=== PATIENT | male | born 1955 | race Caucasian/White ===

== ENCOUNTER 2018-06-14 10:37 | Outpatient (REF) | payer OTHER, SELFPAY ==
[2018-06-14 22:02] LABS: ALT 25 U/L (12-78); AST 22 U/L (15-37); Albumin 4.1 g/dL (3.4-5.0); Alkaline Phosphatase 92 U/L (46-116); Anion Gap 9.3 mmol/L (3-11); BUN 22 mg/dL (7-18); Bilirubin, Total 0.9 mg/dL (0.2-1.0); CO2 28.7 mmol/L (21.0-32.0); CREATININE 1.14 mg/dL (0.70-1.30); Calcium 9.4 mg/dL (8.5-10.1); Chloride 105 mmol/L (98-107); Glucose 87 mg/dL (70-100); Potassium 3.8 mmol/L (3.5-5.1); Sodium 143 mmol/L (136-145); TSH (W/Ref FT4) 3.11 uIU/mL (0.358-3.74); Total Protein 6.8 g/dL (6.4-8.2)
== END 2018-06-14 10:57 ==
LOC: NCHCN 10:37
PROVIDERS: Visit Provider Nurse Practitioner Family
DX: E03.9 Hypothyroidism, unspecified (principal); I25.10 Atherosclerotic heart disease of native coronary artery without angina pectoris; D21.9 Benign neoplasm of connective and other soft tissue, unspecified; E66.9 Obesity, unspecified
CPT/HCPCS: 80053; 84443

== ENCOUNTER 2018-06-24 00:38 | Outpatient (CLI) | payer OTHER, SELFPAY ==
--- NOTE | 2018-06-24 08:14 | DI.US_ITS ---
SYMPTOMS/DIAGNOSIS: CARDIOVASCULAR SCREENING, Z13.6 ABDOMINAL AORTA ULTRASOUND: Sonographic evaluation of the abdominal aorta was performed. There is no evidence of an abdominal aortic aneurysm. Largest diameter is seen proximally where it measures 1.6 x 1.8 cm. The right iliac artery measures 0.8 x 1.0 cm. The left iliac artery measures 0.8 x 1.0 cm. IMPRESSION: No sonographic evidence of an abdominal aortic aneurysm.
== END 2018-06-24 00:58 ==
PROVIDERS: PCP Nurse Practitioner Family; Visit Provider Internal Medicine
DX: Z13.6 Encounter for screening for cardiovascular disorders (principal)
CPT/HCPCS: 76706

== ENCOUNTER 2019-12-01 09:25 | Outpatient (CLI) | payer OTHER, SELFPAY ==
[2019-12-03 05:50] LABS: SARS-CoV-2 RNA Undetected (Undetected); SARS-CoV-2 Specimen Source Nasopharynx
== END 2019-12-01 09:45 ==
PROVIDERS: PCP Nurse Practitioner Family; Visit Provider Nurse Practitioner Family
DX: Z20.828 Contact with and (suspected) exposure to other viral communicable diseases (principal)
CPT/HCPCS: U0003

== ENCOUNTER 2021-04-07 11:47 | Outpatient (REF) | payer MEDICARE, SELFPAY ==
[2021-04-07 15:14] LABS: ALT 30 U/L (16-63); AST 18 U/L (15-37); Albumin 4.4 g/dL (3.4-5.0); Alkaline Phosphatase 90 U/L (46-116); Anion Gap 8.3 mmol/L (3-11); BUN 20 mg/dL (7-18); Bilirubin, Total 0.9 mg/dL (0.2-1.0); CO2 27.7 mmol/L (21.0-32.0); CREATININE 1.2 mg/dL (0.70-1.30); Calcium 9.2 mg/dL (8.5-10.1); Chloride 105 mmol/L (98-107); Glucose 105 mg/dL (74-106); Magnesium 2.2 mg/dL (1.8-2.4); Potassium 4.5 mmol/L (3.5-5.1); Sodium 141 mmol/L (136-145); TSH (W/Ref FT4) 2.48 uIU/mL (0.36-3.74); Total Protein 7.4 g/dL (6.4-8.2); Vitamin B12 500 pg/mL (193-986)
== END 2021-04-07 11:48 | disposition home or self-care (01) ==
LOC: NCHCN 11:47
PROVIDERS: PCP Nurse Practitioner Family; Visit Provider Nurse Practitioner Family
DX: K21.9 Gastro-esophageal reflux disease without esophagitis (principal); E66.9 Obesity, unspecified; E03.9 Hypothyroidism, unspecified; I25.10 Atherosclerotic heart disease of native coronary artery without angina pectoris
CPT/HCPCS: 80053; 82607; 83735; 84443

== ENCOUNTER 2022-08-18 11:20 | Outpatient (REF) | payer MEDICARE, SELFPAY ==
[2022-08-18 14:36] LABS: Anion Gap 11.2 mmol/L (3-11); BUN 25 mg/dL (7-18); CO2 27.8 mmol/L (21.0-32.0); CREATININE 1.2 mg/dL (0.70-1.30); Calcium 9.3 mg/dL (8.5-10.1); Chloride 104 mmol/L (98-107); Estimated GFR 65.46 (mL/min/1.73m2); Glucose 106 mg/dL (74-106); Potassium 4.3 mmol/L (3.5-5.1); Sodium 143 mmol/L (136-145); TSH (W/Ref FT4) 2.19 uIU/mL (0.36-3.74); Vitamin B12 424 pg/mL (193-986)
== END 2022-08-18 11:21 | disposition home or self-care (01) ==
LOC: NCHCN 11:20
PROVIDERS: PCP Nurse Practitioner Family; Visit Provider Nurse Practitioner Family
DX: I10 Essential (primary) hypertension (principal); E03.9 Hypothyroidism, unspecified; I25.10 Atherosclerotic heart disease of native coronary artery without angina pectoris; K21.9 Gastro-esophageal reflux disease without esophagitis; E66.9 Obesity, unspecified; M25.561 Pain in right knee; Z86.39 Personal history of other endocrine, nutritional and metabolic disease
CPT/HCPCS: 80048; 82607; 83735; 84443

== ENCOUNTER 2023-07-24 06:23 | Inpatient (IN) | payer MEDICARE, SELFPAY ==
[2023-07-24] VITALS (35 sets, daily range): BP systolic 115–171; BP diastolic 57–83; PULSE 53–72; RESP 12–19; TEMP 35.3–37; O2SAT 95–100
--- NOTE | 2023-07-24 06:15 | RT.EKG_ITS ---
APPROVED REPORT Exam: Resting ECG Reason for Exam: chest pain Patient Location: E HR:59 bpm ECG Measurements Heart Rate 59 AXIS NH 204 P 62 QRSd 162 QRS -50 QT 460 T 1 QTc 456 Conclusion Sinus bradycardia...rate< 60 RBBB and LAFB...QRSd >120mS, axis(-40,240) no st segment or t wave abnormalities to suggest occlusive mi
--- NOTE | 2023-07-24 06:30 | DI.RAD_ITS ---
Exam(s) XR PORTABLE CHEST AP EXAM: XR PORTABLE CHEST AP CLINICAL HISTORY: chest pain TECHNIQUE: 2D digital imaging was performed. COMPARISON: CR,RF BARIUM SWALLOW W PA LAT CXR from 12/22/2008 FINDINGS: Leads overlie the chest. LUNGS: Clear. No pleural abnormality seen. HEART: Normal size. AORTA: Normal diameter. BONES: Degenerative changes in the thoracic spine. Soft tissues: Unremarkable. IMPRESSION: No acute findings. DATA REPOSITORY: RADIATION DOSE DELIVERED:
--- NOTE | 2023-07-24 06:30 | DI.CT_ITS ---
Exam(s) CT THORAX CTA EXAM: CT THORAX CTA CLINICAL HISTORY: chest pain radiating into back/left arm. TECHNIQUE: Imaging Protocol: Axial CT angiography was performed with multi-slice acquisition and mu lti-planar reconstructions as well as axial, coronal and sagittal MIP reconstructions. CONTRAST MATERIAL: Intravenous: Omnipaque 350 Contrast volume:100 ml COMPARISON: CR XR PORTABLE CHEST AP from 07/24/2023 FINDINGS: Pulmonary Arteries: No evidence of filling defect to suggest pulmonary emboli. Tracheobronchial tree: No mucous plugging. Mediastinum and Pau: No dominant adenopathy or fluid collection. Small hiatal hernia. Pulmonary parenchyma: No consolidation or dominant measurable mass. Pleura: No effusion or pneumothorax. Heart: The heart is mildly dilated. Minimal coronary artery calcifications are seen. Aorta: Thoracic aorta non-dilated. No dissection. Minimal atherosclerotic changes. Upper abdomen: No acute findings. Bones: Endplate osteophytes in the thoracic spine. No compression fractures. Tubes, Catheters, and Lines: None Soft tissues: Unremarkable. IMPRESSION: No evidence of pulmonary embolism or aortic dissection. Small hiatal hernia. RADIATION DOSE DELIVERED: 336.45mGy.cm Total DLP DATA REPOSITORY: All CT scans at this facility are submitted to the National Radiology Data Registry (NRDR) Dose Index Registry (DIR) with the [employer] (A[employer]). RADIATION OPTIMIZATION: All CT scans at this facility use at least one of these dose optimization te chniques: automated exposure control; mA and/or kV adjustment per patient size (includes targeted exa ms where dose is matched to clinical indication); or iterative reconstruction.
--- NOTE | 2023-07-24 06:43 | ED.GENADUL_ITS ---
Discharge Plan Discharge Details Chief Complaint: Chest Pain Primary Care Provider: Zandra Hatch ED Provider: Katharine Huber Home Meds and New Rx's Prescriptions: No Action ASPIRIN, CHEWABLE 81 MG TAB.CHEW 81 mg CH DAILY PRILOSEC OTC 20 MG TABLET.DR 20 mg PO DAILY Qty: 90 Patient Comments: 05/02/16trying to stop completely simvastatin 10 MG tablet 10 mg PO DAILY HPI General Mode of arrival: ambulatory . Date/Time Provider Initiated Documentation: 07/24/23 06:33 . Limitations to Documentation: no limitations . Information obtained by: patient and family . HPI Narrative: 68yo M denies prior medical history presents with acute chest pain radiating to left arm and back. Started around 0500 this morning while doing barn chores. L eft arm felt weird and heavy. Associated diaphoresis, lightheadedness, and shortness of breath. Lasted from 0500 to around 0630. Did not take any medications. Pain has since resolved. No recent trauma or injury. Never experienced similar symptoms in the past. Otherwise in his usual state of health with no fevers, chills, rash, vomiting, abdominal pain, tingling, weakness, or other concerns. Related Data Home Medications Medication Instructions Recorded Confirmed Prilosec Otc 20 mg PO DAILY ##90 09/11/08 07/24/23 Aspirin, Chewable 81 mg CH DAILY 12/10/09 07/24/23 simvastatin 10 mg tablet 10 mg PO DAILY 04/04/16 07/24/23 Allergies Allergy/AdvReac Type Severity Reaction Status Date / Time No Known Drug Allergies Allergy none Verified 07/24/23 06:38 General Stated Complaint: Chest Pain NILDA: 3 Review of Systems Narrative: see HPI Exam Narrative Exam Narrative: General: Alert, well appearing, well nourished, in no acute distress. Head: Normocephalic, atraumatic Neck: Trachea midline, ?Neck supple. ENT: ?MMM.? No oropharygeal lesions or exudate. Cardiac: ?RRR, no murmurs appreciated Resp: No respiratory distress. CTAB. Abd: ?Soft, non-distended, nontender : ?No suprapubic tenderness. Extremities: ?No deformities.? No peripheral edema. Neurologic: GCS 15. ? Moves all extremities freely against gravity Course Vital Signs Vital signs: Vital Signs Temperature 36.6 C 07/24/23 06:27 Pulse 68 07/24/23 06:27 Respiratory Rate 16 07/24/23 06:27 Blood Pressure 171/73 H 07/24/23 06:27 Pulse Oximetry 100 07/24/23 06:27 Temperature 36.6 C 07/24/23 06:27 Temperature Source Temporal Artery Scan 07/24/23 06:27 Pulse 68 07/24/23 06:27 Respiratory Rate 16 07/24/23 06:27 Respiratory Effort Normal, Non-Labored 07/24/23 06:35 Respiratory Depth Normal 07/24/23 06:35 Respiratory Pattern Normal 07/24/23 06:35 Blood Pressure 171/73 H 07/24/23 06:27 Pulse Oximetry 100 07/24/23 06:27 Oxygen Delivery Method Room Air 07/24/23 06:27 Oxygen Flow Rate 0 07/24/23 06:27 Pain Level 0 07/24/23 06:27 Medical Decision Making 68yo M denies prior medical history presents with acute chest pain radiating to left arm and back. Left arm felt weird and heavy. Lasted from 0500 to around 0630. Did not take any medications. Associated diaphoresis, lightheadedness, and shortness of breath. Hypertensive on arrival, vital signs otherwise reassuring. Benign physical exam. Pain resolved prior to arrival. History concerning for ACS, less likely dissection, intrabdominal pathology including reflux, pancreatitis possible though no epigastric tenderness on exam. Given 325 of ASA here. EKG SR, no ST segment or T wave abnormalities to suggest occlusive FL. Will initiate broad workup including labs, CXR, CT for dissection. Signed out to oncoming physician, labs and imaging pending. Quality:[facility] Health Related Social Needs: No Data to Display [facility] Medical History GERD (gastroesophageal reflux disease) Surgical History (Updated 05/04/16 @ 10:16 by Fina Portillo) Colonoscopy - MAC (05/02/16) Social History Smoking/Tobacco Use Status: Former Tobacco Use Smoking risk assessment performed?: Yes Drug use: Never Substance use type: does not use Housing: house Do you feel safe at home: Yes Do you feel safe in your relationship?: Yes
[2023-07-24] MEDS: Aspirin 81 MG CHEW 324 MG CH (06:47)
[2023-07-24 06:57] LABS: Abs Immature Grans 0.01 10^3/uL (0.0-0.06); Absolute Basophil Count 0.03 10^3/uL (0.0-0.2); Absolute Eosinophil Count 0.11 10^3/uL (0.0-0.7); Absolute Lymphocyte Count 1.81 10^3/uL (1.2-3.4); Absolute Monocyte Count 0.38 10^3/uL (0.1-0.8); Absolute Neutrophil Count 3.75 10^3/uL (1.2-6.7); Basophils % 0.5; Eosinophils % 1.8; HCT 45.5 % (40.0-50.0); HGB 15.8 g/dL (13.5-17.5); Immature Grans % 0.2; Lymphocytes % 29.7; MCH 30.9 pg (27.0-33.0); MCHC 34.7 % (32.0-36.0); MCV 89 fL (80-95); MPV 10.3 fL (8.0-11.0); Monocytes % 6.2; Neutrophils % 61.6; Platelet Count 238 10^3/uL (130-400); RBC 5.12 10^6/uL (4.36-5.78); RDW 11.9 % (11.8-14.1); RDW-SD 38.8 fL; WBC 6.09 10^3/uL (4.4-10.8)
[2023-07-24 07:18] LABS: INR 1.1 (0.9-1.1)
[2023-07-24 07:27] LABS: ALT 28 U/L (16-63); AST 20 U/L (15-37); Albumin 4.5 g/dL (3.4-5.0); Alkaline Phosphatase 84 U/L (46-116); Anion Gap 11.9 mmol/L (3-11); BUN 21 mg/dL (7-18); Bilirubin, Total 1.2 mg/dL (0.2-1.0); CO2 25.1 mmol/L (21.0-32.0); CREATININE 1.3 mg/dL (0.70-1.30); Calcium 9.2 mg/dL (8.5-10.1); Chloride 106 mmol/L (98-107); Glucose 177 mg/dL (74-106); Lipase 48 U/L (16-77); NT-proBNP 76 pg/mL (<300); Potassium 3.8 mmol/L (3.5-5.1); Sodium 143 mmol/L (136-145); Total Protein 7.8 g/dL (6.4-8.2); Troponin I < 50 ng/L (< or =60)
[2023-07-24] MEDS: Normal Saline - Diluent 50 ML VIAL IJ (07:31)
--- NOTE | 2023-07-24 07:31 | W.EDPROG ---
Date of service: 07/24/23 Time of Service: 07:32 Medical Decision Making care assumed from off going provider patient with acute exertional chest pain. initial trop negative. plan for admission pending CTA to [facility] for dissection. CTA negative. Admitted to hospital for further cardiac work up. No additional CP in ED. Medical Records Medical records reviewed: Yes I reviewed the patient's medical records. Quality:[facility] Health Related Social Needs: No Data to Display Sign Out Sign Out Data: Sign Out Comment: 68yo previously healthy male, acute chest pain radiating to back/left arm from [id number] this morning, since resolved. Given ASA on arrival. EKG no NIELS. Pending labs, CXR, CTA for dissection. Last updated by Katharine Huber MD at 07/24/23 07:08 Discharge Plan Disposition Patient Disposition: Admit to [facility] Condition: Stable Discharge Details Chief Complaint: Chest Pain Clinical Impression: Chest pain Primary Care Provider: Zandra Hatch ED Provider: Panchito Garcia Home Meds and New Rx's Prescriptions: No Action ASPIRIN, CHEWABLE 81 MG TAB.CHEW 81 mg CH DAILY PRILOSEC OTC 20 MG TABLET.DR 20 mg PO DAILY Qty: 90 Patient Comments: 05/02/16trying to stop completely simvastatin 10 MG tablet 10 mg PO DAILY
[2023-07-24] MEDS: Omnipaque 350 MG/ML 500 ML BTL-Imaging package IJ (07:32)
--- NOTE | 2023-07-24 09:06 | DI.VRAD_ITS ---
PROCEDURE INFORMATION: Exam: XR Chest Exam date and time: 07/24/2023 6:45 AM Age: 68 years old Clinical indication: Other: Chest pain TECHNIQUE: Imaging protocol: Radiologic exam of the chest. Views: 1 view. COMPARISON: No relevant prior studies available. FINDINGS: Lungs: No focal consolidation seen. Pleural spaces: No large pleural effusion seen. Heart/Mediastinum: Cardiac silhouette magnified by AP technique. Bones/joints: Grossly unremarkable. IMPRESSION: No acute findings to explain reported symptoms. Dictated and Authenticated by: Janelle Obando MD. Ordering:REG Alcantar MD
--- NOTE | 2023-07-24 09:20 | DI.VRAD_ITS ---
PROCEDURE INFORMATION: Exam: CTA Chest With Contrast Exam date and time: 07/24/2023 7:08 AM Age: 68 years old Clinical indication: Other: Cp radiating into back TECHNIQUE: Imaging protocol: Computed tomographic angiography of the chest with contrast. Exam focused on the arteries. 3D rendering (Not supervised by radiologist): MIP and/or 3D reconstructed images were created by the technologist. Radiation optimization: All CT scans at this facility use at least one of these dose optimization techniques: automated exposure control; mA and/or kV adjustment per patient size (includes targeted exams where dose is matched to clinical indication); or iterative reconstruction. Contrast material: OMNIPAQUE 350; Contrast volume: 100 ml; Contrast route: INTRAVENOUS (IV); COMPARISON: No relevant prior studies are available for comparison. FINDINGS: Limitations: Mild motion artifact. Pulmonary arteries: No pulmonary embolus is appreciated. Aorta: No thoracic aortic aneurysm or dissection seen. Arterial calcifications. Lungs: No focal consolidation seen. Pleural spaces: No pleural effusion. Heart: No pericardial effusion. Coronary arteries: Coronary artery calcifications. Esophagus: Thickening of the visualized distal esophagus. Lymph nodes: No acute abnormality seen. Diaphragm: Hiatal hernia. Bones/joints: No acute pertinent abnormality seen. Soft tissues: No acute pertinent abnormality seen. IMPRESSION: 1. No pulmonary embolus is appreciated. 2. Distal esophageal thickening. Consider esophagitis, neoplasm. Dictated and Authenticated by: Janelle Obando MD. Ordering:REG Alcantar MD
--- NOTE | 2023-07-24 09:22 | W.PM.HP.N ---
Date of service: 07/24/23 Time of Service: 09:45 Assessment and Plan Assessment and plan (1) NSTEMI (non-ST elevated myocardial infarction): Status: Acute Assessment and plan: -Given patient's presenting symptoms of chest pain occurring with exertion with associated diaphoresis, lightheadedness and shortness of breath that resolved with rest, it appears patient has stable angina -EKG with right bundle branch block -patient remains without chest pain -however, shortly after accepting the patient for admission, his repeat troponin came back at 239 -patient will be started on heparin drip -reached out to both [facility] [place] [facility] transfer centers who stated that neither have bed availability at this time -have decided to start patient on plavix, given 300mg loading dose now and will give 75mg daily starting 07/24 -will again reach out to [facility] and [facility] again on 07/24 to inquire about transfer; would inquire about emergent transfer if chest pain returns or patient develops EKG changes -Will monitor on telemetry -Continue aspirin that was initiated in the emergency department -Follow-up a.m. lipid panel and hemoglobin A1c (2) HLD (hyperlipidemia): Status: Acute Assessment and plan: -holding home simvastatin and starting 80mg PO lipitor History of Present Illness History of Present Illness Chief Complaint: Exertional chest pain Narrative: 68-year-old male with past medical history of hyperlipidemia presents to the emergency department with exertional chest pain. Patient states that he has been in his usual state of health, but when he woke up this morning and went outside to do chores around 5 AM he began to experience pressure-like substernal chest pain that radiated to his back and left arm. He states that this pain that lasted from about 5 AM to about 630, and resolved with rest. He states that it was associated with mild diaphoresis, lightheadedness and shortness of breath. He has never had any similar symptoms in the past, and otherwise denies any fever, chills, nausea, vomiting, abdominal pain, visual changes or weakness in upper or lower extremities. In the emergency department the patient was noted as having normal vital signs, normal CBC, normal CMP. Additionally, EKG showed normal sinus rhythm with a right bundle branch block but without any ST elevations, depressions, or T wave inversions. Additionally, patient had 2 negative troponins. However, given patient's age, description of symptoms, it appears that he may have stable angina and will benefit from trending troponins, telemetry monitoring, and nuclear stress test. Which the emergency room physician paged hospitalist for admission for patient with stable angina. Review of Systems All systems reviewed & are unremarkable except as noted in HPI and below PFSH All Active Problems (Updated 07/24/23 @ 10:35 by Marin Rowan MD) NSTEMI (non-ST elevated myocardial infarction) (Acute) HLD (hyperlipidemia) (Acute) Stable angina (Acute) Chest pain (Acute) Medical History GERD (gastroesophageal reflux disease) Surgical History Colonoscopy - MAC (05/02/16) Social History Smoking/Tobacco Use Status: Former Tobacco Use Smoking risk assessment performed?: Yes Drug use: Never Substance use type: does not use Housing: house Do you feel safe at home: Yes Do you feel safe in your relationship?: Yes Meds Allergies and Home Medications Allergies Allergy/AdvReac Type Severity Reaction Status Date / Time No Known Drug Allergies Allergy none Verified 07/24/23 06:38 Home Medications Medication Instructions Recorded Confirmed Type Prilosec Otc 20 mg PO DAILY ##90 09/11/08 07/24/23 History Aspirin, Chewable 81 mg CH DAILY 12/10/09 07/24/23 History simvastatin 10 mg tablet 10 mg PO DAILY 04/04/16 07/24/23 History Exam Narrative Exam Narrative: Well-appearing older gentleman laying in bed in no acute distress, ANO x 4, heart regular rhythm, lungs clear to auscultation bilaterally, abdomen soft, nontender, nondistended Results Labs 07/24/23 06:45 07/24/23 06:45 Labs: Laboratory Results - last 24 hr 07/24/23 06:45 WBC 6.09 RBC 5.12 Hgb 15.8 Hct 45.5 MCV 89 MCH 30.9 MCHC 34.7 RDW 11.9 Plt Count 238 MPV 10.3 Immature Gran % 0.2 Neutrophils % 61.6 Lymphocytes % 29.7 Monocytes % 6.2 Eosinophils % 1.8 Basophils % 0.5 Nucleated RBC % 0.0 Absolute Neutrophils 3.75 Absolute Lymphocytes 1.81 Absolute Monocytes 0.38 Absolute Eosinophils 0.11 Absolute Basophils 0.03 PT 11.0 INR 1.1 APTT 22.0 L Sodium 143 Potassium 3.8 Chloride 106 Carbon Dioxide 25.1 Anion Gap 11.9 H BUN 21 H Creatinine 1.3 Est GFR (CKD-EPI 2020) 59.10 Glucose 177 H Calcium 9.2 Magnesium 2.0 Total Bilirubin 1.2 H AST 20 ALT 28 Alkaline Phosphatase 84 Troponin I < 50 NT-Pro-B Natriuret Pep 76 Total Protein 7.8 Albumin 4.5 Lipase 48 Last Vital Signs Temp 98.6 F 07/24/23 08:20 Pulse 58 L 07/24/23 08:20 Resp 18 07/24/23 08:20 BP 134/69 07/24/23 08:20 Pulse Ox 100 07/24/23 08:20 Time Spent Time spent with Patient: >75 minutes Time was spent: preparing to see the patient(eg.review tests), obtaining and/or reviewing separately otained hiistory, ordering medications,tests, procedures, referring, communicating with other health home care companion, indepentently interpreting results, counseling the patient and care coordination
[2023-07-24 10:01] LABS: Troponin I 293 ng/L (< or =60)
[2023-07-24] MEDS: Heparin in 0.45% NaCl 25,000 UNIT/250 ML BAG 10 UNIT IV (10:49)
--- NOTE | 2023-07-24 11:15 | RT.EKG_ITS ---
APPROVED REPORT Exam: Resting ECG Reason for Exam: NSTEMI Patient Location: I HR:63 bpm ECG Measurements Heart Rate 63 AXIS WY 203 P 51 QRSd 156 QRS -75 QT 430 T -8 QTc 441 Conclusion Sinus rhythm...normal P axis, V-rate 50- 99 Probable left atrial enlargement...P >50mS, <-0.10mV V1 RBBB and LAFB...QRSd >120mS, axis(-40,240)
[2023-07-24] MEDS: Clopidogrel 300 MG TAB PO (12:19)
[2023-07-24 14:01] LABS: Troponin I 556 ng/L (< or =60)
[2023-07-24 17:23] LABS: PTT Activated 58.9 sec (23.6-32.8)
[2023-07-24] MEDS: Atorvastatin 40 MG TAB 80 MG PO (21:41)
[2023-07-24] MEDS: Metoprolol 12.5 MG TAB PO (21:43)
[2023-07-24] MEDS: Normal Saline Flush 10 ML SYR IVP (21:44)
[2023-07-24 23:16] LABS: PTT Activated 62.4 sec (23.6-32.8)
[2023-07-25] VITALS (8 sets, daily range): BP systolic 113–127; BP diastolic 68–94; PULSE 57–69; RESP 16–18; TEMP 35.8–36.1; O2SAT 91–100
[2023-07-25 06:29] LABS: HCT 45.3 % (40.0-50.0); HGB 15.6 g/dL (13.5-17.5); MCH 30.2 pg (27.0-33.0); MCHC 34.4 % (32.0-36.0); MCV 88 fL (80-95); MPV 10.1 fL (8.0-11.0); Platelet Count 246 10^3/uL (130-400); RBC 5.16 10^6/uL (4.36-5.78); RDW 12.1 % (11.8-14.1); RDW-SD 39.2 fL; WBC 7.11 10^3/uL (4.4-10.8)
[2023-07-25 06:42] LABS: PTT Activated 58.7 sec (23.6-32.8)
[2023-07-25 06:50] LABS: Anion Gap 12.6 mmol/L (3-11); BUN 23 mg/dL (7-18); CO2 24.4 mmol/L (21.0-32.0); CREATININE 1.3 mg/dL (0.70-1.30); Calcium 9.3 mg/dL (8.5-10.1); Calculated LDL 100 mg/dL (<100); Chloride 107 mmol/L (98-107); Cholesterol 171 mg/dL (<200); Glucose 119 mg/dL (74-106); HDL Cholesterol 55 mg/dL (40-60); Magnesium 2.1 mg/dL (1.8-2.4); Potassium 4.2 mmol/L (3.5-5.1); Sodium 144 mmol/L (136-145); Triglyceride 83 mg/dL (<150)
[2023-07-25] MEDS: Heparin in 0.45% NaCl 25,000 UNIT/250 ML BAG 10 UNIT IV (07:04)
[2023-07-25 07:58] LABS: Hemoglobin A1C 5.8 % (<5.7)
[2023-07-25 08:23] LABS: Troponin I 163 ng/L (< or =60)
[2023-07-25] MEDS: Normal Saline Flush 10 ML SYR IVP (08:31)
[2023-07-25] MEDS: Metoprolol 12.5 MG TAB PO ×2 (08:31→22:07)
[2023-07-25] MEDS: Clopidogrel 75 MG TAB PO (08:31)
[2023-07-25] MEDS: Aspirin 81 MG CHEW CH (08:31)
--- NOTE | 2023-07-25 09:07 | PDOC.CMIN ---
Date of service: 07/25/23 Time of Service: 09:08 Care Management Initial Assmt Initial Assessment REASON FOR HOSPITALIZATION:: NSTEMI PREVIOUS FUNCTIONAL STATUS/SOCIAL/FAMILY SUPPORTS:: Ion lives in [place], [place] with his Joe. He works at [employer] ADVANCE DIRECTIVES:: none on file Has patient been provided with info about the portal/API?: Yes Did the patient sign up for the portal?: No CODE STATUS:: Full Code INSURANCE COVERAGE / FINANCIAL ISSUES:: [employer] Medicare Replacement PRIMARY CARE PHYSICIAN:: Zandra Hatch POTENTIAL DISCHARGE NEEDS:: follow up with PCP and cardiology PATIENT/FAMILY EDUCATION NEEDS:: Review of discharge instructions, activity, limitations, follow up plan, discuss Ask me Three TRANSPORTATION:: via private vehicle with family PLAN:: Anticipate Ion will be discharged home with no new services unless he is transferred to a tertiary care facility. CM will follow and continue to support discharge needs. PFSH All Active Problems (Updated 07/24/23 @ 10:35 by Marin Rowan MD) NSTEMI (non-ST elevated myocardial infarction) (Acute) HLD (hyperlipidemia) (Acute) Stable angina (Acute) Chest pain (Acute) Medical History GERD (gastroesophageal reflux disease) Surgical History Colonoscopy - MAC (05/02/16) Social History Smoking/Tobacco Use Status: Former Tobacco Use Smoking risk assessment performed?: Yes Drug use: Never Substance use type: does not use Housing: house Do you feel safe at home: Yes Do you feel safe in your relationship?: Yes SDOH(Care Management) Screening Will the Patient Participate in the Screening?: Yes Do you worry about having a steady place to live?: no In the past 12 months, have you had to go without electric, gas, oil or water in your home?: no Have you or anyone in your house had to go without enough food to eat?: no Has lack of transportation kept you from medical appointments or from doing things needed for daily living?: no Has anyone in your support network made you feel unsafe for any reason?: no
--- NOTE | 2023-07-25 11:21 | PGE_ITS ---
Date of Service Date of service: 07/25/23 Time of Service: 11:21 Assessment and Plan Assessment and plan (1) NSTEMI (non-ST elevated myocardial infarction): Status: Acute Assessment and plan: -Given patient's presenting symptoms of chest pain occurring with exertion with associated diaphoresis, lightheadedness and shortness of breath that resolved with rest, it appears patient has stable angina -EKG with right bundle branch block -patient remains without chest pain -however, shortly after accepting the patient for admission, his repeat troponin came back at 239 -patient will be started on heparin drip -reached out to both [facility] [place] [facility] transfer centers who stated that neither have bed availability at this time -have decided to start patient on plavix, given 300mg loading dose now and will give 75mg daily starting 07/24 -discussed with [facility], rec continue medication management and patient has been accepted for transfer 07/26/[address] Gonzales -Will monitor on telemetry -Continue aspirin that was initiated in the emergency department (2) HLD (hyperlipidemia): Status: Acute Assessment and plan: -holding home simvastatin and starting 80mg PO lipitor Exam Narrative Exam Narrative: Well-appearing older gentleman laying in bed in no acute distress, ANO x 4, heart regular rhythm, lungs clear to auscultation bilaterally, abdomen soft, nontender, nondistended Objective Last Vital Signs Temp 97.0 F L 07/25/23 11:08 Pulse 61 07/25/23 11:08 Resp 16 07/25/23 11:08 BP 113/72 07/25/23 11:08 Pulse Ox 91 L 07/25/23 11:08 Laboratory Results - last 24 hr 07/24/23 07/24/23 07/24/23 13:13 17:00 22:55 WBC RBC Hgb Hct MCV MCH MCHC RDW Plt Count MPV APTT 58.9 H 62.4 H Sodium Potassium Chloride Carbon Dioxide Anion Gap BUN Creatinine Est GFR (CKD-EPI 2020) Glucose Hemoglobin A1c Calcium Magnesium Troponin I 556 H* Triglycerides Total Cholesterol LDL Cholesterol, Calc HDL Cholesterol 07/25/23 07/25/23 06:12 07:50 WBC 7.11 RBC 5.16 Hgb 15.6 Hct 45.3 MCV 88 MCH 30.2 MCHC 34.4 RDW 12.1 Plt Count 246 MPV 10.1 APTT 58.7 H Sodium 144 Potassium 4.2 Chloride 107 Carbon Dioxide 24.4 Anion Gap 12.6 H BUN 23 H Creatinine 1.3 Est GFR (CKD-EPI 2020) 59.10 Glucose 119 H Hemoglobin A1c 5.8 H Calcium 9.3 Magnesium 2.1 Troponin I 163 H* Triglycerides 83 Total Cholesterol 171 LDL Cholesterol, Calc 100 HDL Cholesterol 55 Time Spent with Patient Time Spent with Patient: >50 minutes Time was spent: preparing to see the patient(eg.review tests), obtaining and/or reviewing separately otained hiistory, ordering medications,tests, procedures, referring, communicating with other health residential care facility manager, indepentently interpreting results, counseling the patient and care coordination
--- NOTE | 2023-07-25 13:41 | INITIAL_ITS ---
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 Ion emphasizes how helpful his granddaughters are. He drives and is active and independent with his ADL's at baseline. CURRENT FUNCTIONAL STATUS:: Ion was sitting in his chair when CM met with him. He is talkative and easy to engage in conversation for the purpose of this interview. Per pt he feels good currently and is waiting to go to [facility] for his Cardiac Cath tomorrow. CM will follow. ADVANCE DIRECTIVES:: None on file Has patient been provided with info about the portal/API?: Yes Did the patient sign up for the portal?: No CODE STATUS:: Full Code INSURANCE COVERAGE / FINANCIAL ISSUES:: [employer] [facility] Medicare CURRENT HOME/COMMUNITY SERVICES/EQUIPMENT:: None PRIMARY CARE PHYSICIAN:: Zandra Hatch POTENTIAL DISCHARGE NEEDS:: Transfer to [facility] PATIENT/FAMILY EDUCATION NEEDS:: Review transfer instructions and discharge plan of care, discuss ask me three. ANTICIPATED BARRIERS TO DISCHARGE:: None identified TRANSPORTATION:: Will be transported to [facility] via EMS PLAN:: Transfer to [facility] via EMS tomorrow for a Cardiac Cath. PFSH All Active Problems (Updated 07/24/23 @ 10:35 by Marin Rowan MD) NSTEMI (non-ST elevated myocardial infarction) (Acute) HLD (hyperlipidemia) (Acute) Stable angina (Acute) Chest pain (Acute) Medical History GERD (gastroesophageal reflux disease) Surgical History Colonoscopy - MAC (05/02/16) Social History Smoking/Tobacco Use Status: Former Tobacco Use Smoking risk assessment performed?: Yes Drug use: Never Substance use type: does not use Housing: house Do you feel safe at home: Yes Do you feel safe in your relationship?: Yes SDOH(Care Management) Screening Will the Patient Participate in the Screening?: Yes Do you worry about having a steady place to live?: no In the past 12 months, have you had to go without electric, gas, oil or water in your home?: no Have you or anyone in your house had to go without enough food to eat?: no Has lack of transportation kept you from medical appointments or from doing things needed for daily living?: no Has anyone in your support network made you feel unsafe for any reason?: no
[2023-07-25] MEDS: Atorvastatin 40 MG TAB 80 MG PO (22:07)
[2023-07-26] VITALS (8 sets, daily range): BP systolic 111–127; BP diastolic 65–92; PULSE 54–72; RESP 16–20; TEMP 35.3–36; O2SAT 93–99
[2023-07-26] MEDS: Normal Saline Flush 10 ML SYR IVP ×2 (00:08→08:17)
[2023-07-26 06:44] LABS: PTT Activated 63.2 sec (23.6-32.8)
[2023-07-26] MEDS: Aspirin 81 MG CHEW CH (08:17)
[2023-07-26] MEDS: Clopidogrel 75 MG TAB PO (08:17)
[2023-07-26] MEDS: Metoprolol 12.5 MG TAB PO (08:17)
[2023-07-26] MEDS: Heparin in 0.45% NaCl 25,000 UNIT/250 ML BAG 10 UNIT IV (08:18)
--- NOTE | 2023-07-26 08:45 | CMPROGNOTE_ITS ---
Date of service: 07/26/23 Care Management Progress Note Progress Note Text Progress Note Text: S/O: A: Ion is a 68 year old admitted to [facility] 07/24/23 for an NSTEMI. P: Ion will discharge home when medically cleared. He will transport via private vehicle. He will follow up with facility plan of care as prescribed. CM following. SDOH(Care Management) Screening Will the Patient Participate in the Screening?: Yes Do you worry about having a steady place to live?: no In the past 12 months, have you had to go without electric, gas, oil or water in your home?: no Have you or anyone in your house had to go without enough food to eat?: no Has lack of transportation kept you from medical appointments or from doing things needed for daily living?: no Has anyone in your support network made you feel unsafe for any reason?: no
--- NOTE | 2023-07-26 10:19 | CMDISCH_ITS ---
Date of service: 07/26/23 LACE Index Scoring Tool Questions: Length of Stay (in days): 2 Was the patient admitted via the E.D.?: Yes E.D. Visits: 0 Answers: Total Score: 5 Risk of Readmission: Low Risk Care Management Discharge Plan Reason for Hospitalization: NSTEMI Discharge Plan: Ion will transfer to [facility] for cardiac care. He will transport via EMS coordinated by nursing help desk supervisor. He will follow up with his care plan as prescribed. SDOH Health Related Social Needs: No Data to Display
--- NOTE | 2023-07-26 10:56 | PDOC.CMPRO ---
Date of service: 07/26/23 Care Management Progress Note Progress Note Text Progress Note Text: S/O: Ion was sitting up in a chair when talking with CM. He shares he is patiently waiting to transfer to [facility] that he hopes will be today. He has been NPO awaiting transfer. Ion shares he believes his heart concerns is plaque related not muscle related so he has been up and walking around often in the halls. Ion shared he will have support when at [facility] from family and when discharged. He describes living on the same property has his son, daughter in law, and granddaughters. 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 CM following. A: Ion is a 68 year old admitted to [facility] 07/24/23 for an NSTEMI. P: Transfer to [facility] via EMS coordinated by nursing welding equipment repairer supervisor tomorrow for a Cardiac Cath. SDOH(Care Management) Screening Will the Patient Participate in the Screening?: Yes Do you worry about having a steady place to live?: no In the past 12 months, have you had to go without electric, gas, oil or water in your home?: no Have you or anyone in your house had to go without enough food to eat?: no Has lack of transportation kept you from medical appointments or from doing things needed for daily living?: no Has anyone in your support network made you feel unsafe for any reason?: no
--- NOTE | 2023-07-26 13:21 | W.PM.DS.N ---
DS: Diagnosis Discharge Diagnosis (1) NSTEMI (non-ST elevated myocardial infarction): Status: Acute (2) HLD (hyperlipidemia): Status: Acute Discharge Plan Disposition Condition: Stable Discharge Details Reason For Visit: NSTEMI Admit Date/Time: 07/24/23 09:21 Admit Provider: Marin Rowan Attending Provider: Marin Rowan Primary Care Provider: Zandra Hatch Home Meds and New Rx's Prescriptions: No Action ASPIRIN, CHEWABLE 81 MG TAB.CHEW 81 mg CH DAILY PRILOSEC OTC 20 MG TABLET.DR 20 mg PO DAILY Qty: 90 Patient Comments: 05/02/16trying to stop completely simvastatin 10 MG tablet 10 mg PO DAILY Discharge Instructions Activity:: Activity as Tolerated Equipment/Supplies:: Blood Glucose Monitor Diet:: As Tolerated DS: Summary Quality:SDOH Health Related Social Needs: No Data to Display DS: Data Vitals/I&O Vitals and I&O: Vital Signs Temperature 96.4 F L 07/26/23 11:30 Temperature Source Tympanic 07/26/23 11:30 Pulse 67 07/26/23 11:30 Pulse Rhythm Regular 07/26/23 11:00 Pulse 58 L 07/24/23 09:50 Respiratory Rate 18 07/26/23 11:30 Respiratory Effort Normal 07/26/23 11:00 Respiratory Depth Normal 07/26/23 11:00 Respiratory Pattern Normal 07/26/23 11:00 Blood Pressure 111/71 07/26/23 11:30 Blood Pressure Mean 90 07/24/23 08:00 Pulse Oximetry 97 07/26/23 11:30 Oxygen Delivery Method Room Air 07/26/23 11:30 Oxygen Flow Rate 0 07/26/23 11:30 Pain Level 0 07/26/23 11:30 Comment 97.3 F 07/26/23 06:07 Intake & Output 07/25/23 07/26/23 07/26/23 17:59 05:59 17:59 Intake Total 212.167 / 212.167 250 / 250 Balance 212.167 / 212.167 250 / 250 Intake: IV 212.167 / 212.167 250 / 250 Other: Urine Color Yellow Urine Appearance Clear Clear Clear Comment up independently to toilet pt voided at toilet Voiding Methods Toilet Data Completed and Pending Labs on day of discharge: Labs from last 24 hours 07/26/23 06:09 APTT 63.2 H PFSH All Active Problems (Updated 07/24/23 @ 10:35 by Marin Rowan MD) NSTEMI (non-ST elevated myocardial infarction) (Acute) HLD (hyperlipidemia) (Acute) Stable angina (Acute) Chest pain (Acute) Medical History GERD (gastroesophageal reflux disease) Surgical History Colonoscopy - MAC (05/02/16) Social History Smoking/Tobacco Use Status: Former Tobacco Use Smoking risk assessment performed?: Yes Drug use: Never Substance use type: does not use Housing: house Do you feel safe at home: Yes Do you feel safe in your relationship?: Yes
--- NOTE | 2023-07-26 17:11 | DSE_ITS ---
Date of service: 07/26/23 Time of Service: 17:11 DS: Diagnosis Discharge Diagnosis (1) NSTEMI (non-ST elevated myocardial infarction): Status: Acute Asessment and Plan: -Given patient's presenting symptoms of chest pain occurring with exertion with associated diaphoresis, lightheadedness and shortness of breath that resolved with rest, it appears patient has stable angina -EKG with right bundle branch block -patient remains without chest pain -however, shortly after accepting the patient for admission, his repeat troponin came back at 239 -patient will be started on heparin drip -reached out to both [facility] and [facility] transfer centers who stated that neither have bed availability at this time -have decided to start patient on plavix, given 300mg loading dose now and will give 75mg daily starting 07/24 -discussed with [facility], rec continue medication management and patient has been accepted for transfer 07/26/[address] Gonzales -Will monitor on telemetry -Continue aspirin that was initiated in the emergency department (2) HLD (hyperlipidemia): Status: Acute Discharge Plan Disposition Patient Disposition: Transfer-Acute Inpatient Care Specific Acute Inpt Facility: [facility] Condition: Good Discharge Details Reason For Visit: NSTEMI Admit Date/Time: 07/24/23 09:21 Admit Provider: Marin Rowan Attending Provider: Marin Rowan Primary Care Provider: Zandra Hatch Hospital Course Hospital Course: Patient initially presented with complaints of chest pain early in the morning that resolved. He presented to the emergency department. While his EKG was normal and initial troponin was negative, his repeat troponin was determined to have been elevated. He was started on a heparin drip at that time, and on admission day there were no beds available at [facility] or [facility] so the patient was also started on Plavix. However, on 07/25/2023 discussion was had with [facility] cardiology who agreed to accept the patient for left heart catheterization. He remained on heparin drip, did not have any additional episodes of chest pain and was ultimately determined to be stable for transfer to [facility] for left heart catheterization on 07/26/2023 Home Meds and New Rx's Prescriptions: No Action ASPIRIN, CHEWABLE 81 MG TAB.CHEW 81 mg CH DAILY PRILOSEC OTC 20 MG TABLET.DR 20 mg PO DAILY Qty: 90 Patient Comments: 05/02/16trying to stop completely simvastatin 10 MG tablet 10 mg PO DAILY Discharge Instructions Activity:: Activity as Tolerated Equipment/Supplies:: Blood Glucose Monitor Diet:: As Tolerated Discharge Orders Discharge Orders: Discharge Order (Routine); Ordered 07/26/23 Ordered By: Marin Rowan DS: Summary Time Spent with Patient providing and/or coordinating discharge services: Greater than 30 minutes Status at Discharge Functional status at discharge: independent ambulation Overall status at discharge: patient is back to baseline Mental Status: mental status grossly normal Speech and Movement: speech and movement normal Mood: congruent mood Affect: normal affect Quality:SDOH Health Related Social Needs: No Data to Display Exam Narrative Exam Narrative: Well-appearing older gentleman laying in bed in no acute distress, ANO x 4, heart regular rhythm, lungs clear to auscultation bilaterally, abdomen soft, nontender, nondistended Psych Mental Status: mental status grossly normal Speech and Movement: speech and movement normal Mood: congruent mood Affect: normal affect DS: Data Vitals/I&O Vitals and I&O: Vital Signs Temperature 96.6 F L 07/26/23 15:24 Temperature Source Tympanic 07/26/23 15:24 Pulse 63 07/26/23 15:24 Pulse Rhythm Regular 07/26/23 16:45 Pulse 58 L 07/24/23 09:50 Respiratory Rate 16 07/26/23 15:24 Respiratory Effort Normal 07/26/23 16:45 Respiratory Depth Normal 07/26/23 16:45 Respiratory Pattern Normal 07/26/23 16:45 Blood Pressure 112/69 07/26/23 15:24 Blood Pressure Mean 90 07/24/23 08:00 Pulse Oximetry 93 07/26/23 15:24 Oxygen Delivery Method Room Air 07/26/23 15:24 Oxygen Flow Rate 0 07/26/23 15:24 Pain Level 0 07/26/23 15:24 Comment 97.3 F 07/26/23 06:07 Intake & Output 07/25/23 07/26/23 07/26/23 17:59 05:59 17:59 Intake Total 212.167 / 212.167 250 / 250 Balance 212.167 / 212.167 250 / 250 Intake: IV 212.167 / 212.167 250 / 250 Other: Urine Color Yellow Urine Appearance Clear Clear Clear Comment up independently to toilet pt voided at toilet Voiding Methods Toilet Data Completed and Pending Labs on day of discharge: Labs from last 24 hours 07/26/23 06:09 APTT 63.2 H PFSH All Active Problems (Updated 07/24/23 @ 10:35 by Marin Rowan MD) NSTEMI (non-ST elevated myocardial infarction) (Acute) HLD (hyperlipidemia) (Acute) Stable angina (Acute) Chest pain (Acute) Medical History GERD (gastroesophageal reflux disease) Surgical History Colonoscopy - MAC (05/02/16) Social History Smoking/Tobacco Use Status: Former Tobacco Use Smoking risk assessment performed?: Yes Drug use: Never Substance use type: does not use Housing: house Do you feel safe at home: Yes Do you feel safe in your relationship?: Yes Time Spent with Patient Time Spent with Patient: <45 minutes Time was spent: preparing to see the patient(eg.review tests), obtaining and/or reviewing separately otained hiistory, ordering medications,tests, procedures, referring, communicating with other health career agent, indepentently interpreting results, counseling the patient and care coordination
== END 2023-07-26 19:45 | disposition short-term general hospital (02) | DRG 282 ==
LOC: ER 09:39 → MS 10:02
PROVIDERS: Student in an Organized Health Care Education/Training Program; Admitting Provider Family Medicine; Emergency Provider Emergency Medicine; PCP Nurse Practitioner Family; Visit Provider Family Medicine
DX: I21.4 Non-ST elevation (NSTEMI) myocardial infarction (principal); E78.5 Hyperlipidemia, unspecified; I25.118 Atherosclerotic heart disease of native coronary artery with other forms of angina pectoris; I45.10 Unspecified right bundle-branch block; K21.9 Gastro-esophageal reflux disease without esophagitis
CPT/HCPCS: 00123; 36415; 71275; 80048; 80053; 80061; 83690; 85027; 93005; 99285; 71045; 83036; 83735; 83880; 84484; 85025; 85610; 85730; 93010; 93306; 99223; 99233; 99238; J1644; J3490

== ENCOUNTER 2023-08-22 11:00 | Outpatient (RCR) | payer MEDICARE, SELFPAY | END 2023-09-07 23:59 | disposition home or self-care (01) | LOC: CR 11:00 | PROVIDERS: PCP Nurse Practitioner Family; Visit Provider Internal Medicine Cardiovascular Disease | DX: I25.118 Atherosclerotic heart disease of native coronary artery with other forms of angina pectoris (principal); I21.4 Non-ST elevation (NSTEMI) myocardial infarction; Z51.89 Encounter for other specified aftercare | CPT/HCPCS: S9472 ==

== ENCOUNTER 2023-10-22 08:33 | Outpatient (REF) | payer MEDICARE, SELFPAY ==
[2023-10-22 15:11] LABS: Bilirubin Negative (Negative); Blood Negative (Negative); Clarity Cloudy (Clear); Glucose Negative (Negative); Ketones Negative (Negative); Leukocyte Esterase Negative (Negative); Nitrite Negative (Negative); Specific Gravity >= 1.030 (1.005-1.025); Urobilinogen 0.2 mg/dL (Up to 0.2); pH 5.5 (5-8)
[2023-10-22 15:51] LABS: Hemoglobin A1C 6.1 % (<5.7)
[2023-10-22 15:53] LABS: ALT 31 U/L (16-63); AST 23 U/L (15-37); Alkaline Phosphatase 112 U/L (46-116); Anion Gap 10.4 mmol/L (3-11); BUN 27 mg/dL (7-18); Bilirubin, Total 1.16 mg/dL (0.2-1.0); CO2 25.6 mmol/L (21.0-32.0); CREATININE 1.2 mg/dL (0.70-1.30); Chloride 108 mmol/L (98-107); Estimated GFR 65.06 (mL/min/1.73m2); Glucose 134 mg/dL (74-106); Sodium 144 mmol/L (136-145); Total Protein 6.9 g/dL (6.4-8.2); Vitamin B12 431 pg/mL (193-986)
== END 2023-10-22 08:34 | disposition home or self-care (01) ==
LOC: NCHCN 08:33
PROVIDERS: PCP Nurse Practitioner Family; Visit Provider Nurse Practitioner Family
DX: R73.03 Prediabetes (principal); K21.9 Gastro-esophageal reflux disease without esophagitis; I25.10 Atherosclerotic heart disease of native coronary artery without angina pectoris; R31.21 Asymptomatic microscopic hematuria
CPT/HCPCS: 80053; 81003; 82607; 83036; 83735

== ENCOUNTER 2023-11-14 03:44 | Outpatient (CLI) | payer MEDICARE, SELFPAY ==
[2023-11-14 10:46] LABS: COMMENT (LAB VIEW ONLY) 83.17 mg/dL; Microalb ug/mg Crea 5.4 ug/mg Cr
[2023-11-14 10:48] LABS: Calculated LDL 73 mg/dL (<100); Cholesterol 134 mg/dL (<200); HDL Cholesterol 48 mg/dL (40-60); Triglyceride 69 mg/dL (<150)
== END 2023-11-14 03:45 | disposition home or self-care (01) ==
LOC: LBO 03:45
PROVIDERS: PCP Nurse Practitioner Family; Visit Provider Nurse Practitioner Family
DX: I25.10 Atherosclerotic heart disease of native coronary artery without angina pectoris (principal); I10 Essential (primary) hypertension
CPT/HCPCS: 36415; 80061; 82043; 82570

== ENCOUNTER → 2023-11-15 00:57 | Outpatient (CLI) | payer MEDICARE, SELFPAY ==
[2023-11-15] MEDS: Normal Saline - Diluent 50 ML VIAL IJ (09:04)
[2023-11-15] MEDS: Omnipaque 350 MG/ML 100 ML BTL IJ (09:04)
--- NOTE | 2023-11-15 09:15 | DI.CT_ITS ---
Exam(s) CT NECK CHEST W EXAM: CT NECK CHEST W INDICATION: DISEASE OF ESOPHAGUS, K22.9. COMPARISON: CT CT THORAX CTA from 07/24/2023 TECHNIQUE: FINDINGS: CT SOFT TISSUES NECK WITH IV CONTRAST: VISUALIZED PARANASAL SINUSES: Some focal mucosal thickening is noted in the floor and medial wall of the right maxillary sinus. no associated fluid level. Other paranasal sinuses are clear and there a re no mastoid effusions evident. NASOPHARYNX: Unremarkable ORODENTAL: Unremarkable. OROPHARYNX: Unremarkable. No masses evident. HYPOPHARYNX: Unremarkable. Valleculae and epiglottis and aryepiglottic folds appear normal. VOCAL CORDS: Difficult to assess as patient appear to closed glottis hold breath during this study ca using apposition of the vocal cords which therefore cannot be assessed for subtle findings. The subg lottic airway appears unremarkable. THYROID GLAND: Unremarkable. Normal size and no obvious nodules. SALIVARY GLANDS: Unremarkable. No significant findings in the parotid and submandibular glands. LYMPH NODES: There is no adenopathy evident in the neck and supraclavicular regions. OTHER: Visualized upper esophagus appears unremarkable. CT CHEST WITH IV CONTRAST: LUNGS: There are no confluent infiltrates nor pleural effusions. No significant pulmonary nodules ev ident. No findings in the trachea and mainstem bronchi. There is no bronchiectasis. MEDIASTINUM: There is no hilar nor mediastinal adenopathy. Also no subcarinal adenopathy. There is a moderate size hiatal hernia which measures 3 cm wide by 3.8 cm AP by 3.5 cm craniocaudal. There are no varices nor lymphadenopathy at the GE junction level. 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 Heart size is upper normal. There is no pericardial effusion. Caliber of thoracic aorta is within normal limits. No evidence of dissection. . OSSEOUS: No fractures. No significant osseous lesions evident. OTHER: Uppermost abdomen images reveal no adrenal masses. Normal spleen size. No obvious focal find ings in the partially visualized liver. IMPRESSION: 1. There is a hiatal hernia which measures 3 x 3.8 x 3.5 cm. No surrounding lymphadenopathy and no varices in the GE junction region. The esophagus above the level of the hiatal hernia appears unrema rkable with no circumferential thickening nor dilatation nor fluid nor fluid therein. There is no ev idence of Zenker's diverticulum. 2. No lung infiltrates nor pleural effusion. No intrathoracic adenopathy. 3. 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 Heart size upper normal. No pericardial effus ion. 4. There are no masses nor lymphadenopathy in the neck. RADIATION DOSE DELIVERED: Total DLP DATA REPOSITORY: All CT scans at this facility are submitted to the National Radiology Data Registry (NRDR) Dose Index Registry (DIR) with the [employer] (A[employer]). RADIATION OPTIMIZATION: All CT scans at this facility use at least one of these dose optimization te chniques: automated exposure control; mA and/or kV adjustment per patient size (includes targeted exa ms where dose is matched to clinical indication); or iterative reconstruction.
== END ==
PROVIDERS: PCP Nurse Practitioner Family; Visit Provider Nurse Practitioner Family
DX: K22.9 Disease of esophagus, unspecified (principal); K44.9 Diaphragmatic hernia without obstruction or gangrene
CPT/HCPCS: 70491; 71260; J3490

== ENCOUNTER 2023-11-19 08:58 | Outpatient (CLI) | payer MEDICARE, SELFPAY ==
--- NOTE | 2023-11-19 08:45 | RT.EKG_ITS ---
APPROVED REPORT Exam: Resting ECG Reason for Exam: CAD Patient Location: O HR:48 bpm ECG Measurements Heart Rate 48 AXIS RI 207 P 32 QRSd 152 QRS -49 QT 459 T 22 QTc 411 Conclusion Sinus bradycardia...rate< 50 Probable left atrial enlargement...P >50mS, <-0.10mV V1 Right bundle branch block...QRSd>120, terminal axis(90,270) MICHOACANO
== END 2023-11-19 08:59 | disposition home or self-care (01) ==
LOC: DI.CARD 08:59
PROVIDERS: PCP Nurse Practitioner Family; Visit Provider Internal Medicine Cardiovascular Disease
DX: I21.4 Non-ST elevation (NSTEMI) myocardial infarction (principal); I25.10 Atherosclerotic heart disease of native coronary artery without angina pectoris
CPT/HCPCS: 93010

== ENCOUNTER → 2023-11-19 13:34 | Outpatient (BNVA) | payer MEDICARE, SELFPAY | PROVIDERS: PCP Nurse Practitioner Family; Referring Provider Nurse Practitioner Family; Visit Provider Internal Medicine Cardiovascular Disease | DX: Z95.1 Presence of aortocoronary bypass graft (principal); I25.2 Old myocardial infarction; I44.4 Left anterior fascicular block; I45.10 Unspecified right bundle-branch block; I25.10 Atherosclerotic heart disease of native coronary artery without angina pectoris | CPT/HCPCS: 93005; 99214 ==

== ENCOUNTER → 2024-05-19 09:38 | Outpatient (BNVA) | payer MEDICARE, SELFPAY | PROVIDERS: PCP Nurse Practitioner Family; Referring Provider Nurse Practitioner Family; Visit Provider Registered Nurse | DX: Z95.1 Presence of aortocoronary bypass graft (principal); I25.2 Old myocardial infarction | CPT/HCPCS: 99213 ==

== ENCOUNTER 2024-10-06 08:12 | Outpatient (REF) | payer MEDICARE, SELFPAY ==
[2024-10-06 15:30] LABS: Bilirubin Negative (Negative); Blood Negative (Negative); Clarity Clear (Clear); Glucose Negative (Negative); Ketones Negative (Negative); Leukocyte Esterase Negative (Negative); Nitrite Negative (Negative); Specific Gravity 1.025 (1.005-1.025); pH 6.5 (5-8)
[2024-10-06 15:56] LABS: Hemoglobin A1C 5.9 % (<5.7)
[2024-10-06 16:19] LABS: ALT 29 U/L (16-63); AST 19 U/L (15-37); Albumin 4.1 g/dL (3.4-5.0); Alkaline Phosphatase 92 U/L (46-116); Anion Gap 8.2 mmol/L (3-11); BUN 22 mg/dL (7-18); Bilirubin, Total 1.2 mg/dL (0.2-1.0); CO2 27.8 mmol/L (21.0-32.0); Calcium 9.2 mg/dL (8.5-10.1); Calculated LDL 72 mg/dL (<100); Chloride 109 mmol/L (98-107); Cholesterol 133 mg/dL (<200); Estimated GFR 80.47 (mL/min/1.73m2); Glucose 115 mg/dL (74-106); HDL Cholesterol 52 mg/dL (>or=40); Magnesium 2.1 mg/dL (1.8-2.4); Potassium 4.7 mmol/L (3.5-5.1); Sodium 145 mmol/L (136-145); Total Protein 6.7 g/dL (6.4-8.2); Triglyceride 45 mg/dL (<150); Vitamin B12 587 pg/mL (193-986)
[2024-10-06 16:43] LABS: COMMENT (LAB VIEW ONLY) 192.77 mg/dL; Microalb ug/mg Crea 4.6 ug/mg Cr
== END 2024-10-06 08:13 | disposition home or self-care (01) ==
LOC: NCHCN 08:12
PROVIDERS: PCP Nurse Practitioner Family; Visit Provider Nurse Practitioner Family
DX: I10 Essential (primary) hypertension (principal); R73.03 Prediabetes; K21.9 Gastro-esophageal reflux disease without esophagitis
CPT/HCPCS: 80053; 80061; 81003; 82043; 82570; 82607; 83036; 83735

== ENCOUNTER → 2024-12-01 09:27 | Outpatient (BNVA) | payer MEDICARE, SELFPAY | PROVIDERS: PCP Nurse Practitioner Family; Referring Provider Nurse Practitioner Family; Visit Provider Registered Nurse | DX: I21.4 Non-ST elevation (NSTEMI) myocardial infarction (principal); Z79.01 Long term (current) use of anticoagulants | CPT/HCPCS: 99214 ==